=== PATIENT | female | born 1995 | race Two or more races ===

== ENCOUNTER 2020-07-26 12:21 | Emergency (ER) | payer SELFPAY ==
[~2020-07-26] VITALS: Ht 154.9 cm; Wt 43.0 kg
[2020-07-26 12:26] VITALS: BP 128/78
== END 2020-07-26 12:50 | disposition home or self-care (01) ==
LOC: ED 12:41
DX: J02.9 Acute pharyngitis, unspecified (principal); Z20.828 Contact with and (suspected) exposure to other viral communicable diseases; R51.9 Headache, unspecified
CPT/HCPCS: 87635; 99283